=== PATIENT | female | born 1950 | race African-American/Black ===

== ENCOUNTER 2022-12-19 04:22 | Inpatient (IN) | payer MEDICARE, OTHER ==
[2022-12-19] VITALS (10 sets, daily range): BP systolic 106–133; BP diastolic 53–79
[~2022-12-19] VITALS: Ht 160 cm; Wt 73.9 kg
[2022-12-19] MEDS ORDERED: ONDANSETRON HCL 4MG/2ML INJ IV STA (04:29)
[2022-12-19 05:05] LABS: BASOPHILS % 0.3 % (0.0-2.0); EOSINOPHILS % 0.6 % (0.0-5.0); HEMATOCRIT. 34.7 % (36.0-48.0); LYMPHOCYTES % 7.3 % (20.0-50.0); MEAN CORPUSCULAR HEMOGLOBIN 32.6 pg (28.0-32.0); MEAN CORPUSCULAR VOLUME 103.3 fL (81.0-99.0); MEAN PLATELET VOLUME 8.3 fl (7.4-10.4); MONOCYTES % 4.3 % (2.0-8.0); NEUTROPHILS % 87.5 % (40.0-76.0); PLATELET 229 x1000/uL (130-400); RED BLOOD CELL COUNT 3.36 mill/uL (4.2-5.4); RED CELL DISTRIBUTION WIDTH 18.9 % (11.6-14.6)
[2022-12-19 05:08] LABS: CHLORIDE 104 mEq/L (98-107)
[2022-12-19 05:35] LABS: BG BASE EXCESS -0.5 mmol/L (-2.0-2.0); BG CARBOXYHEMOGLOBIN 0.6 % (0.5-1.5); BG DEOXYHEMOGLOBIN 1.4 % (0.0-5.0); BG FRACTION INSPIRED OXYGEN 50; BG HCO3 ACT 25.6 mmol/L (22.0-26.0); BG METHEMOGLOBIN 0.2 % (0.0-1.5); BG OXYGEN SATURATION 98.6 % (92.0-98.5); BG OXYHEMOGLOBIN 97.8 % (94.0-97.0); BG PCO2 48.3 mmHg (35.0-45.0); BG PH 7.342 (7.350-7.450); BG PO2 155.6 mmHg (75.0-100.0); BG SAMPLE SITE LEFT RADIAL; BG TOTAL HEMOGLOBIN 11.8 g/dL (12.0-18.0); BG VENT MODE MASK - BIPAP
[2022-12-19] MEDS ORDERED: IPRATROPIUM/ALBUTEROL 0.5-3(2.5)MG/3ML NEB NEB PRN (06:45)
[2022-12-19] MEDS ORDERED: ONDANSETRON HCL 4MG/2ML INJ IV PRN (06:45)
[2022-12-19] MEDS ORDERED: GUAIFENESIN 200MG/10ML SUGAR FREE UDC PO PRN (06:45)
[2022-12-19] MEDS ORDERED: ACETAMINOPHEN 325MG TABLET PO PRN ×2 (06:45)
[2022-12-19] MEDS ORDERED: MAGNESIUM/ALUMINUM HYDROXIDE/SIMETHICONE 30ML UDC PO PRN (06:45)
[2022-12-19] MEDS ORDERED: NITROGLYCERIN 0.4MG TABLET SL SL PRN (06:45)
[2022-12-19] MEDS ORDERED: CLONIDINE 0.1MG TABLET PO PRN (06:45)
[2022-12-19] MEDS ORDERED: DOCUSATE SODIUM 100MG CAPSULE PO PRN (06:45)
[2022-12-19] MEDS: IPRATROPIUM/ALBUTEROL 0.5-3(2.5)MG/3ML NEB HHN SCH ×3 (07:29→16:08)
[2022-12-19] MEDS ORDERED: PIPERACILLIN/TAZ 3.375G PREMIX 50 ML IV SCH (07:30)
[2022-12-19] MEDS ORDERED: VANCOMYCIN 1.25GM PMX (XELLIA) 250 ML IV NR (08:00)
[2022-12-19] MEDS: AMLODIPINE 5MG TABLET PO SCH (09:00)
[2022-12-19] MEDS: ENOXAPARIN 30MG/0.3ML SYR SUBCUT SCH (09:02)
[2022-12-19] MEDS: FAMOTIDINE 20MG TABLET PO SCH (09:30)
[2022-12-19] MEDS: GUAIFENESIN 600MG ER TABLET PO SCH ×2 (09:30→21:26)
[2022-12-19] MEDS: ASPIRIN 325MG EC TABLET PO SCH (09:30)
[2022-12-19 09:52] LABS: VITAMIN B12 SERUM 694 pg/mL (211-911)
[2022-12-19 10:10] LABS: FOLIC ACID (FOLATE) SERUM > 20.00 ng/mL (>5.38)
[2022-12-19] MEDS: PIPERACILLIN/TAZOBACTAM 3.375 G in DEXTROSE 5% WATER 50 ML IV SCH ×2 (10:11→21:58)
[2022-12-19 12:02] LABS: HDL CHOLESTEROL 60 mg/dL (40-59); LDL CHOLESTEROL 71 mg/dL (5-100); T4 FREE 0.98 ng/dL (0.76-1.46)
[2022-12-20] VITALS (23 sets, daily range): BP systolic 97–148; BP diastolic 44–92
[2022-12-20] MEDS: ZOLPIDEM TARTRATE 5MG TABLET PO PRN (02:38)
[2022-12-20 07:26] LABS: BASOPHILS % 0.6 % (0.0-2.0); EOSINOPHILS % 2.7 % (0.0-5.0); HEMATOCRIT. 28.5 % (36.0-48.0); HEMOGLOBIN. 9.2 g/dL (12.0-16.0); LYMPHOCYTES % 14.9 % (20.0-50.0); MEAN CORPUSCULAR HEMOGLOBIN 33.3 pg (28.0-32.0); MEAN CORPUSCULAR VOLUME 103.1 fL (81.0-99.0); MEAN PLATELET VOLUME 8.5 fl (7.4-10.4); MONOCYTES % 8.6 % (2.0-8.0); NEUTROPHILS % 73.2 % (40.0-76.0); PLATELET 139 x1000/uL (130-400); RED BLOOD CELL COUNT 2.76 mill/uL (4.2-5.4); RED CELL DISTRIBUTION WIDTH 16.8 % (11.6-14.6)
[2022-12-20 07:31] LABS: CHLORIDE 104 mEq/L (98-107)
[2022-12-20 07:37] LABS: PHOSPHORUS 5.9 mg/dL (2.5-4.9)
[2022-12-20] MEDS: ASPIRIN 325MG EC TABLET PO SCH (09:00)
[2022-12-20] MEDS: AMLODIPINE 5MG TABLET PO SCH (09:00)
[2022-12-20] MEDS: ENOXAPARIN 30MG/0.3ML SYR SUBCUT SCH (09:00)
[2022-12-20] MEDS: GUAIFENESIN 600MG ER TABLET PO SCH ×2 (09:00→23:02)
[2022-12-20 09:20] LABS: BG CARBOXYHEMOGLOBIN 0.3 % (0.5-1.5); BG DEOXYHEMOGLOBIN 9.2 % (0.0-5.0); BG FRACTION INSPIRED OXYGEN 21; BG HCO3 ACT 24.7 mmol/L (22.0-26.0); BG METHEMOGLOBIN 0.3 % (0.0-1.5); BG OXYGEN SATURATION 90.7 % (92.0-98.5); BG OXYHEMOGLOBIN 90.2 % (94.0-97.0); BG PCO2 40.4 mmHg (35.0-45.0); BG PH 7.405 (7.350-7.450); BG PO2 62.4 mmHg (75.0-100.0); BG SAMPLE SITE LEFT RADIAL; BG TOTAL HEMOGLOBIN 9.8 g/dL (12.0-18.0); BG VENT MODE ROOM AIR
[2022-12-20] MEDS: PIPERACILLIN/TAZOBACTAM 3.375 G in DEXTROSE 5% WATER 50 ML IV SCH ×2 (12:10→23:02)
[2022-12-20 16:29] LABS: CREATINE KINASE MB FRACTION 1.6 ng/mL (0.5-3.6)
[2022-12-20] MEDS ORDERED: VANCOMYCIN 500MG PREMIX 100 ML IV NR (18:00)
[2022-12-20] MEDS: IPRATROPIUM/ALBUTEROL 0.5-3(2.5)MG/3ML NEB HHN SCH ×3 (18:45→22:45)
[2022-12-20 18:50] LABS: HEPATITIS B SURFACE ANTIGEN NEGATIVE
[2022-12-21] VITALS (12 sets, daily range): BP systolic 87–140; BP diastolic 27–88
[2022-12-21] MEDS: ZOLPIDEM TARTRATE 5MG TABLET PO PRN (00:32)
[2022-12-21 06:39] LABS: BASOPHILS % 0.9 % (0.0-2.0); HEMATOCRIT. 28.6 % (36.0-48.0); HEMOGLOBIN. 9.2 g/dL (12.0-16.0); LYMPHOCYTES % 17.8 % (20.0-50.0); MEAN CORPUSCULAR HEMOGLOBIN 33.5 pg (28.0-32.0); MEAN CORPUSCULAR VOLUME 104.4 fL (81.0-99.0); MEAN PLATELET VOLUME 8.3 fl (7.4-10.4); MONOCYTES % 9.8 % (2.0-8.0); NEUTROPHILS % 67.5 % (40.0-76.0); PLATELET 142 x1000/uL (130-400); RED BLOOD CELL COUNT 2.74 mill/uL (4.2-5.4); RED CELL DISTRIBUTION WIDTH 17.2 % (11.6-14.6)
[2022-12-21 07:04] LABS: PHOSPHORUS 5.3 mg/dL (2.5-4.9)
[2022-12-21] MEDS: PIPERACILLIN/TAZOBACTAM 3.375 G in DEXTROSE 5% WATER 50 ML IV SCH ×2 (09:00→21:52)
[2022-12-21] MEDS: IPRATROPIUM/ALBUTEROL 0.5-3(2.5)MG/3ML NEB HHN SCH ×3 (09:51→21:13)
[2022-12-21] MEDS: ENOXAPARIN 30MG/0.3ML SYR SUBCUT SCH (10:15)
[2022-12-21] MEDS: FAMOTIDINE 20MG TABLET PO SCH (10:16)
[2022-12-21] MEDS: ASPIRIN 325MG EC TABLET PO SCH (10:16)
[2022-12-21] MEDS: AMLODIPINE 10MG TABLET PO SCH (10:16)
[2022-12-21] MEDS: GUAIFENESIN 600MG ER TABLET PO SCH ×2 (10:16→21:00)
[2022-12-21] MEDS: SILDENAFIL CITRATE 20MG TABLET PO SCH ×2 (14:30→22:00)
[2022-12-21] MEDS ORDERED: VANCOMYCIN 750MG PREMIX 150 ML IV NR (21:00)
[2022-12-22] VITALS: BP 113/48
[2022-12-22] MEDS: IPRATROPIUM/ALBUTEROL 0.5-3(2.5)MG/3ML NEB HHN SCH ×7 (00:57→22:45)
[2022-12-22 04:00] VITALS: BP 96/69
[2022-12-22] MEDS: ZOLPIDEM TARTRATE 5MG TABLET PO PRN ×3 (04:06→22:30)
[2022-12-22] MEDS: SILDENAFIL CITRATE 20MG TABLET PO SCH ×3 (06:23→22:30)
[2022-12-22 08:00] VITALS: BP 123/49
[2022-12-22 09:13] LABS: BASOPHILS % 0.6 % (0.0-2.0); EOSINOPHILS % 4.6 % (0.0-5.0); HEMATOCRIT. 29.9 % (36.0-48.0); HEMOGLOBIN. 9.7 g/dL (12.0-16.0); LYMPHOCYTES % 17.7 % (20.0-50.0); MEAN CORPUSCULAR HEMOGLOBIN 33.1 pg (28.0-32.0); MEAN CORPUSCULAR VOLUME 102.1 fL (81.0-99.0); MEAN PLATELET VOLUME 8.4 fl (7.4-10.4); MONOCYTES % 9.9 % (2.0-8.0); NEUTROPHILS % 67.2 % (40.0-76.0); PLATELET 147 x1000/uL (130-400); RED BLOOD CELL COUNT 2.93 mill/uL (4.2-5.4); RED CELL DISTRIBUTION WIDTH 16.7 % (11.6-14.6)
[2022-12-22] MEDS: FAMOTIDINE 20MG TABLET PO SCH ×2 (10:36→10:42)
[2022-12-22] MEDS: GUAIFENESIN 600MG ER TABLET PO SCH ×3 (10:36→22:29)
[2022-12-22] MEDS: ASPIRIN 325MG EC TABLET PO SCH ×2 (10:36→10:44)
[2022-12-22] MEDS: AMLODIPINE 10MG TABLET PO SCH (10:36)
[2022-12-22] MEDS: ENOXAPARIN 30MG/0.3ML SYR SUBCUT SCH ×2 (10:37→10:43)
[2022-12-22] MEDS: PIPERACILLIN/TAZOBACTAM 3.375 G in DEXTROSE 5% WATER 50 ML IV SCH ×3 (10:37→22:29)
[2022-12-22 12:00] VITALS: BP 123/50
[2022-12-22 16:00] VITALS: BP 125/58
[2022-12-22 20:00] VITALS: BP 144/48
[2022-12-23] VITALS (10 sets, daily range): BP systolic 123–161; BP diastolic 61–86
[2022-12-23] MEDS: IPRATROPIUM/ALBUTEROL 0.5-3(2.5)MG/3ML NEB HHN SCH ×3 (02:45→12:34)
[2022-12-23] MEDS: SILDENAFIL CITRATE 20MG TABLET PO SCH ×2 (06:42→14:03)
[2022-12-23 07:54] LABS: PHOSPHORUS 6.2 mg/dL (2.5-4.9)
[2022-12-23 08:00] LABS: BASOPHILS % 0.7 % (0.0-2.0); EOSINOPHILS % 5.7 % (0.0-5.0); HEMATOCRIT. 29.7 % (36.0-48.0); HEMOGLOBIN. 9.7 g/dL (12.0-16.0); LYMPHOCYTES % 20.7 % (20.0-50.0); MEAN CORPUSCULAR HEMOGLOBIN 32.7 pg (28.0-32.0); MEAN CORPUSCULAR VOLUME 100.2 fL (81.0-99.0); MEAN PLATELET VOLUME 8.6 fl (7.4-10.4); MONOCYTES % 8.1 % (2.0-8.0); NEUTROPHILS % 64.8 % (40.0-76.0); PLATELET 172 x1000/uL (130-400); RED BLOOD CELL COUNT 2.96 mill/uL (4.2-5.4); RED CELL DISTRIBUTION WIDTH 16.1 % (11.6-14.6)
[2022-12-23] MEDS: GUAIFENESIN 600MG ER TABLET PO SCH (08:55)
[2022-12-23] MEDS: AMLODIPINE 10MG TABLET PO SCH (08:55)
[2022-12-23] MEDS: FAMOTIDINE 20MG TABLET PO SCH (08:55)
[2022-12-23] MEDS: PIPERACILLIN/TAZOBACTAM 3.375 G in DEXTROSE 5% WATER 50 ML IV SCH ×2 (09:00→09:49)
== END 2022-12-23 16:52 | disposition home or self-care (01) | DRG 871 ==
LOC: ER 04:22 → EDBEDREQTM 05:48 → EDBEDREQ 05:48 → SUPCPDRO 06:41 → EDBEDREQSVC 07:44 → 5EST 20:47 → 8WST 12-21 12:00
PROVIDERS: ADMIT Internal Medicine; ATTEND Internal Medicine
PROC: 5A09357 Assistance with Respiratory Ventilation, Less than 24 Consecutive Hours, Continuous Positive Airway Pressure (ICD-10-PCS; principal; 2022-12-19)
PROC: 5A1D70Z Performance of Urinary Filtration, Intermittent, Less than 6 Hours Per Day (ICD-10-PCS; 2022-12-19)
PROC: 5A1D70Z Performance of Urinary Filtration, Intermittent, Less than 6 Hours Per Day (ICD-10-PCS; 2022-12-20)
PROC: 5A1D70Z Performance of Urinary Filtration, Intermittent, Less than 6 Hours Per Day (ICD-10-PCS; 2022-12-21)
PROC: 5A1D70Z Performance of Urinary Filtration, Intermittent, Less than 6 Hours Per Day (ICD-10-PCS; 2022-12-23)
DX: A41.9 Sepsis, unspecified organism (principal); I21.4 Non-ST elevation (NSTEMI) myocardial infarction; J18.9 Pneumonia, unspecified organism; N18.6 End stage renal disease; J96.01 Acute respiratory failure with hypoxia; J96.02 Acute respiratory failure with hypercapnia; I13.2 Hypertensive heart and chronic kidney disease with heart failure and with stage 5 chronic kidney disease, or end stage renal disease; E87.1 Hypo-osmolality and hyponatremia; R65.20 Severe sepsis without septic shock; I50.9 Heart failure, unspecified; E83.51 Hypocalcemia; E78.5 Hyperlipidemia, unspecified; D63.1 Anemia in chronic kidney disease; E87.5 Hyperkalemia; I27.20 Pulmonary hypertension, unspecified; R79.89 Other specified abnormal findings of blood chemistry; F03.90 Unspecified dementia, unspecified severity, without behavioral disturbance, psychotic disturbance, mood disturbance, and anxiety; Z99.2 Dependence on renal dialysis; Z82.49 Family history of ischemic heart disease and other diseases of the circulatory system
CPT/HCPCS: 36415; 36600; 71045; 71250; 80048; 80053; 80061; 80202; 82375; 82550; 82553; 82607; 82746; 82805; 83036; 83540; 83605; 83735; 83880; 84100; 84145; 84439; 84443; 84484; 85025; 86705; 86709; 86803; 87340; 90935; 93005; 93306; 93970; 94640; 94660; 97162; 97166; 99291; C1893; J1650; J2405; J2543; J3370; J7060